=== PATIENT | male | born 1990 | race Two or more races ===

== ENCOUNTER → 2017-06-16 18:30 | Emergency (ER) | payer OTHER ==
[~2017-06-16 18:30] MED LIST: Ibuprofen TAB* 800 MG PO ONE
[2017-06-16 18:41] VITALS: BP 107/67
--- NOTE | 2017-06-16 19:18 | RAD ---
INDICATION: Right ankle injury. TECHNIQUE: 3 views of the right ankle were obtained. FINDINGS: Soft tissue swelling is noted along the anterolateral aspect of the ankle. No fracture is seen. Joint spaces appear maintained. IMPRESSION: SOFT TISSUE SWELLING, NO FRACTURE IS SEEN.
--- NOTE | 2017-06-16 19:35 | ED ---
Lower Extremity - HPI Summary HPI Summary: 26M presents with injury to right ankle. He was playing soccer and twisted his ankle. He has a history of sprained ankle. He was able to ambulate on it afterwards. The area has swelled. He denies taking anything for pain and pain is 4/10. He denies any numbness or tingling. - History of Current Complaint Chief Complaint: EDExtremityLower Stated Complaint: RT ANKLE INJURY Time Seen by Provider: 06/16/17 18:50 Pain Intensity: 2 - Allergies/Home Medications Allergies/Adverse Reactions: Allergies Allergy/AdvReac Type Severity Reaction Status Date / Time Sulfa Antibiotics Allergy Rash Verified 06/16/17 18:49 PMH/Surg Hx/FS Hx/Imm Hx Endocrine/Hematology History: Denies: Hx Anticoagulant Therapy Respiratory History: Denies: Hx Asthma Infectious Disease History: No Infectious Disease History: Reports: Traveled Outside the in Last 30 Days - from [place], - Family History Known Family History: Negative: Cardiac Disease - Social History Alcohol Use: Weekly Substance Use Type: Reports: None Smoking Status (MU): Never Smoked Tobacco Review of Systems Negative: Fever Negative: Chest Pain Negative: Shortness Of Breath Positive: Myalgia - right ankle All Other Systems Reviewed And Are Negative: Yes Physical Exam Triage Information Reviewed: Yes Vital Signs On Initial Exam: Initial Vitals Temp Pulse Resp BP Pulse Ox 98.6 F 57 16 107/67 97 06/16/17 18:38 06/16/17 18:38 06/16/17 18:38 06/16/17 18:38 06/16/17 18:38 Vital Signs Reviewed: Yes Appearance: Positive: Well-Appearing Skin: Positive: Warm, Dry Head/Face: Positive: Normal Head/Face Inspection Eyes: Positive: Normal, Conjunctiva Clear Respiratory/Lung Sounds: Positive: Clear to Auscultation, Breath Sounds Present Cardiovascular: Positive: Normal, RRR Musculoskeletal: Positive: Limited @ - right ankle, Other - good pulses, capillary refill<2secs, tendnerness and edema over lateral aspect of right ankle Diagnostics - Vital Signs Vital Signs Temp Pulse Resp BP Pulse Ox 06/16/17 18:49 98.6 F 57 16 107/67 97 06/16/17 18:38 98.6 F 57 16 107/67 97 - Laboratory Lab Statement: Any lab studies that have been ordered have been reviewed, and results considered in the medical decision making process. - Radiology ankle Xray Interpretation: Positive (See Comments) - IMPRESSION: SOFT TISSUE SWELLING , NO FRACTURE IS SEEN. Radiology Interpretation Completed By: Radiologist Lower Extremity Course/Dx - Course Course Of Treatment: 26M presents with injury to right ankle. He was playing soccer and twisted his ankle. He has a history of sprained ankle. He was able to ambulate on it afterwards. The area has swelled. He denies taking anything for pain and pain is 4/10. He denies any numbness or tingling. neurovascular intact. swelling along lateral aspect of ankle. xray normal. will treat with RICE. patient understands and agrees with plan. - Diagnoses Differential Diagnosis/HQI/PQRI: Positive: Foreign Body, Sprain, Strain Provider Diagnoses: Right ankle injury Discharge - Discharge Plan Condition: Good Disposition: HOME Patient Education Materials: Ankle Sprain (ED) Referrals: [facility] [Outside] Additional Instructions: Stay off ankle as much as possible Ice, elevate, keep in BRUNO Ibuprofen every 6 hours for pain Follow up with [facility] if no improvement Return to ED if develop any new or worsening symptoms
== END | disposition home or self-care (01) ==
LOC: ED 18:30
DX: S99.911A Unspecified injury of right ankle, initial encounter (principal); X50.9XXA Other and unspecified overexertion or strenuous movements or postures, initial encounter; X50.0XXA Overexertion from strenuous movement or load, initial encounter; Y93.66 Activity, soccer; Y92.9 Unspecified place or not applicable
CPT/HCPCS: 99281; A9270-GY